=== PATIENT | male | born 1955 | race Caucasian/White ===

== ENCOUNTER 2016-10-28 08:35 | Outpatient (CLI) | payer OTHER ==
--- NOTE | 2016-10-28 09:53 | DIAGNOSTIC IMAGING REPORT ---
PROCEDURE: XR CHEST 2 VIEW INDICATION: FLANK PX/ BLADDER CANCER/CORONARY ARTERY DISEASE TECHNIQUE: PA and lateral view. COMPARISON: Chest x-ray 08/19/2014 FINDINGS: Lungs are clear. Cardiovascular structures are normal. Bony thorax is unremarkable. No significant interval change. IMPRESSION: 1. Negative chest.
== END 2016-10-28 23:00 | disposition home or self-care (01) ==
LOC: XR SRH 08:35
DX: R10.9 Unspecified abdominal pain (principal); C67.9 Malignant neoplasm of bladder, unspecified; I25.10 Atherosclerotic heart disease of native coronary artery without angina pectoris